=== PATIENT | male | born 1960 | race Caucasian/White ===

== ENCOUNTER 2018-09-15 06:43 | Outpatient (CLI) | payer BC ==
[~2018-09-15] VITALS: Ht 185.4 cm; Wt 113.4 kg
[2018-09-15] VITALS (8 sets, daily range): BP systolic 110–147; BP diastolic 64–95
[2018-09-15] MEDS ORDERED: LIDOCAINE 1% PF 2 ML VIAL. ONE ×2 (07:08→07:22)
[2018-09-15] MEDS ORDERED: IODIXANOL 320 MG/ML 100 ML VIAL. ONE ×2 (07:08→07:22)
[2018-09-15] MEDS ORDERED: LOSA100T7 PO (07:23)
[2018-09-15] MEDS ORDERED: TADA5TAB PO (07:23)
[2018-09-15] MEDS ORDERED: DICL75TA PO (07:23)
[2018-09-15] MEDS ORDERED: FLUO40CA2 PO (07:23)
[2018-09-15] MEDS ORDERED: HYDR-971 PO (07:23)
[2018-09-15] MEDS ORDERED: BYSTOLIC5 MG PO (07:23)
[2018-09-15] MEDS ORDERED: CRESTOR5 MG PO (07:23)
[2018-09-15] MEDS ORDERED: RANI150C PO (07:23)
[2018-09-15 07:51] LABS: RED BLOOD COUNT 4.68 x10^6/uL (4.30-5.70); WHITE BLOOD COUNT 6.1 x10^3/uL (4.0-11.0)
[2018-09-15 07:53] LABS: CALCIUM 9.3 mg/dL (8.5-10.1); CREATININE 1.2 mg/dL (0.7-1.3); GFR 62.4; POTASSIUM 4.4 mmol/L (3.5-5.1)
[2018-09-15] MEDS ORDERED: HEPARIN for IV BOLUS 10,000 UNIT/10 ML VIAL. ONE (08:02)
[2018-09-15] MEDS ORDERED: fentaNYL PF VIAL 100 MCG/2 ML VIAL ONE (08:02)
[2018-09-15] MEDS ORDERED: VERAPAMIL 5 MG/2 ML VIAL. ONE (08:02)
[2018-09-15] MEDS ORDERED: MIDAZOLAM HCL/PF 2 MG/2 ML VIAL. ONE ×2 (08:02→08:33)
[2018-09-15] MEDS ORDERED: NITROGLYCERIN 200 MCG/2 ML SYRINGE FOR CATH/VASC LAB. ONE (08:03)
[2018-09-15 08:08] LABS: PROTHROMBIN TIME PATIENT 11.9 SEC (11.7-14.0)
[2018-09-15] MEDS ORDERED: VERAPAMIL 5 MG/2 ML VIAL. IART ONE (08:45)
[2018-09-15] MEDS ORDERED: NITROGLYCERIN 200 MCG/2 ML SYRINGE FOR CATH/VASC LAB. IART ONE (08:45)
[2018-09-15] MEDS ORDERED: IODIXANOL 320 MG/ML 100 ML VIAL. IART ONE (08:45)
[2018-09-15] MEDS ORDERED: MIDAZOLAM HCL/PF 2 MG/2 ML VIAL. IV ONE (08:45)
[2018-09-15] MEDS ORDERED: fentaNYL PF VIAL 100 MCG/2 ML VIAL IV ONE (08:45)
[2018-09-15] MEDS ORDERED: HEPARIN for IV BOLUS 10,000 UNIT/10 ML VIAL. IART ONE (08:45)
[2018-09-15] MEDS ORDERED: IV NORMAL SALINE 500ML BAG 500 ML IV ONE (08:45)
[2018-09-15] MEDS ORDERED: LIDOCAINE 1% PF 2 ML VIAL. INJ ONE (08:45)
--- NOTE | 2018-09-15 11:42 | CARD ---
MR#: [id number] Date of Study: 09/15/2018 Ordering Physician: CHICHI RIOS, Referring Physician: CHICHI RIOS, Tech: RT Efrain (R) APPROVED REPORT Technologist: Shelley Cerda RT (R) Nurse: CHARLEE MARTIN Procedure(s) performed: 36 MINUTES [facility], Coronary angiography, Left ventriculography HISTORY The patient is a 58 year-old male with a history of : hypertension, dyslipidemia. INDICATION The indication(s) include : unstable angina . PROCEDURE NARRATIVE INFORMED CONSENT: After explaining the risks and benefits of the procedure and alternatives, informed consent was obtained. The patient was brought electively to the cardiac catheterization lab. A timeout was performed confi rming the patient's name, date of , procedure, and site of procedure. All necessary personnel w ere wearing the appropriate protective equipment and radiation monitor devices. (See nursing notes for medications administered). ACCESS: The right wrist was sterilely prepped and draped in the usual fashion. The right wrist was infiltrat ed with 1 mL of 2% lidocaine for subcutaneous anesthesia. A 6 Mozambican Terumo glide sheath was inserte d into the right radial artery without difficulty. CORONARY ANGIOGRAPHY: Right and left coronary angiography was performed using a 6Fr TIG 4.0 catheter. Left ventricular en d diastolic pressure was obtained with a pigtail catheter and pullback was performed after left ventr iculography. All catheter exchanges and advancements were performed over a guidewire. CLOSURE: At case completion the right radial sheath was removed and a Terumo radial band was applied with 13 m l of air. COMPLICATIONS: The patient tolerated the procedure well and there were no immediate complications. FINDINGS: HEMODYNAMICS: LVEDP 8 mm Hg No gradient on LV to aortic pullback. AO: 110/70 LEFT VENTRICULOGRAM: EF 55% Anterobasal: Normal. Anterolateral: Normal Apical: Normal Diaphragmatic: Normal Posterobasal: Normal CORONARY ANGIOGRAPHY: LM is a large caliber vessel with a distal 50% stenosis. LAD is proximally occluded. The mid to distal vessel appears to be small in caliber based on right to left collaterals. D1 is small caliber ostially occluded vessel with no significant disease Ramus is a moderate caliber vessel with an ostial/proximal 80% stenosis. LCx is a small caliber non-dominant vessel with mild luminal irregularities. OM1 is a very small caliber vessel with 50% mid stenosis. RCA is a large caliber hyperdominant vessel with a proximal 50-60% stenosis, distal 60-70% stenosis. RPDA is a moderate caliber vessel and is the main arterial supply to the apex. This vessel has no sig nificant disease. RPL is a moderate caliber vessel with normal angiographic appearance. Conclusion 1. Three vessel coronary artery disease with a diminutive LAD, likely not adequate vessel for bypass. Recommendations 1. Will discuss with CT surgery regarding CABG. If deemed not a candidate for CABG due to poor LAD ta rgets, then staged PCI of the RCA followed by [facility] recanalization of the LAD. Signed by : Chichi Rios, Electronically Approved : 09/15/2018 11:41:07
== END 2018-09-15 12:13 | disposition home or self-care (01) ==
LOC: CCL 06:43
PROVIDERS: ATTEND Internal Medicine Cardiovascular Disease
DX: I25.110 Atherosclerotic heart disease of native coronary artery with unstable angina pectoris (principal); I10 Essential (primary) hypertension; E78.5 Hyperlipidemia, unspecified
CPT/HCPCS: 36415; 80048; 85027; 85610; 93458; 99152; 99153; C1769; C1892; J1644; J2250; J3010; J3490; J7040; Q9967

== ENCOUNTER 2018-09-26 08:55 | Observation (INO) | payer BC ==
[2018-09-26] VITALS (13 sets, daily range): BP systolic 119–144; BP diastolic 60–89
[~2018-09-26] VITALS: Ht 177.8 cm; Wt 109.8 kg
[~2018-09-26 08:55] MED LIST: BYSTOLIC5 MG PO; CRESTOR5 MG PO; DICL75TA PO; FLUO40CA2 PO; HYDR-3164 PO; LOSA100T14 PO; RANI150C PO; TADA5TAB PO
[2018-09-26] MEDS ORDERED: IODIXANOL 320 MG/ML 100 ML VIAL. ONE (09:50)
[2018-09-26] MEDS ORDERED: LIDOCAINE 1% Multi-Dose 50 ML VIAL. ONE (09:50)
[2018-09-26 10:07] LABS: HEMATOCRIT 40.5 % (39.0-53.0); HEMOGLOBIN 14.1 g/dL (13.0-17.5); RED BLOOD COUNT 4.43 x10^6/uL (4.30-5.70); RED CELL DISTRIBUTION WIDTH 12.8 % (11.5-14.5); WHITE BLOOD COUNT 6.3 x10^3/uL (4.0-11.0)
[2018-09-26] MEDS ORDERED: NITROGLYCERIN 200 MCG/2 ML SYRINGE FOR CATH/VASC LAB. ONE ×3 (10:16→11:24)
[2018-09-26] MEDS ORDERED: fentaNYL PF VIAL 100 MCG/2 ML VIAL ONE ×2 (10:16→10:47)
[2018-09-26] MEDS ORDERED: VERAPAMIL 5 MG/2 ML VIAL. ONE (10:16)
[2018-09-26] MEDS ORDERED: MIDAZOLAM HCL/PF 2 MG/2 ML VIAL. ONE (10:16)
[2018-09-26] MEDS ORDERED: HEPARIN for IV BOLUS 10,000 UNIT/10 ML VIAL. ONE (10:16)
[2018-09-26 10:22] LABS: CALCIUM 9.2 mg/dL (8.5-10.1); CREATININE 1.2 mg/dL (0.7-1.3); GFR 62.4; POTASSIUM 4.8 mmol/L (3.5-5.1)
[2018-09-26 10:24] LABS: PROTHROMBIN TIME PATIENT 12.1 SEC (11.7-14.0)
[2018-09-26] MEDS ORDERED: LIDOCAINE 1% Multi-Dose 50 ML VIAL. INJ ONE (10:30)
[2018-09-26] MEDS ORDERED: HEPARIN for IV BOLUS 10,000 UNIT/10 ML VIAL. IART ONE (10:30)
[2018-09-26] MEDS ORDERED: NITROGLYCERIN 200 MCG/2 ML SYRINGE FOR CATH/VASC LAB. IART ONE (10:30)
[2018-09-26] MEDS ORDERED: fentaNYL PF VIAL 100 MCG/2 ML VIAL IV ONE (10:30)
[2018-09-26] MEDS ORDERED: IODIXANOL 320 MG/ML 100 ML VIAL. IART ONE (10:30)
[2018-09-26] MEDS ORDERED: VERAPAMIL 5 MG/2 ML VIAL. IART ONE (10:30)
[2018-09-26] MEDS ORDERED: MIDAZOLAM HCL/PF 2 MG/2 ML VIAL. IV ONE (10:30)
[2018-09-26] MEDS ORDERED: BIVALIRUDIN 250 MG VIAL. IV ONE ×4 (10:36→11:28)
[2018-09-26] MEDS ORDERED: MIDAZOLAM HCL/PF 5 MG/5 ML VIAL. ONE (10:47)
[2018-09-26] MEDS ORDERED: ASPIRIN CHEWABLE 81 MG TABLET. PO ONE (11:15)
[2018-09-26] MEDS ORDERED: MIDAZOLAM HCL/PF 5 MG/5 ML VIAL. IV ONE (11:15)
[2018-09-26] MEDS ORDERED: PRASUGREL 10 MG TABLET. PO ONE (11:15)
[2018-09-26] MEDS ORDERED: ACETAMINOPHEN 325 MG TABLET. PO PRN (14:30)
[2018-09-26] MEDS ORDERED: 0.9 % SODIUM CHLORIDE 10 ML DISP.SYRIN. IV PRN (14:30)
[2018-09-26] MEDS ORDERED: NITROGLYCERIN SUBLINGUAL 0.4 MG BOTTLE OF 25. SL PRN (14:30)
--- NOTE | 2018-09-26 15:18 | CARD ---
MR#: [id number] Date of Study: 09/26/2018 Ordering Physician: CHICHI ELIZABETH, Referring Physician: CHICHI ELIZABETH, Tech: RT Kvng (R) APPROVED REPORT Technologist: RT Kvng (R) Nurse: Joanie Singh R.N. Procedure(s) performed: Sedation Time: 70 minutes PCI of the RCA IVUS of the RCA iFR of the RCA HISTORY The patient is a 58 year-old male with a history of : coronary artery disease. INDICATION The indication(s) include : unstable angina . CASE TECHNIQUE During this case, Fluoroscopy and low osmolar contrast were used for imaging. PROCEDURE NARRATIVE CLINICAL INFORMATION: 58 y.o male presenting for staged PCI of the RCA after heart team discussion regarding PCI versus CAB G. He has had accelerating angina. INFORMED CONSENT: After explaining the risks and benefits of the procedure and alternatives, informed consent was obtained. The patient was brought electively to the cardiac catheterization lab. A timeout was performed confi rming the patient's name, date of , procedure, and site of procedure. All necessary personnel w ere wearing the appropriate protective equipment and radiation monitor devices. (See nursing notes for medications administered). ACCESS: The right wrist was sterilely prepped and draped in the usual fashion. The right wrist was infiltrat ed with 1 mL of 2% lidocaine for subcutaneous anesthesia. A 6 Swedish Terumo glide sheath was inserte d into the right radial artery without difficulty. INTERVENTIONAL TECHNIQUE: Bivalirudin was used for anticoagulation. Through a 6 Swedish JR4 guide catheter a 0.014 inch Verrata pressure wire was advanced to the distal RCA after appropriate normalization. The proximal RCA lesion was not significant. The distal RCA lesion was noted to have an IFR value of 0.88. Subsequently, bal loon angioplasty was performed with a 3.5 x 15 mm balloon and the lesion was stented with a 4.0 x 23 mm Alpine drug-eluting stent. The stent was then postdilated with a 4.0 x 15 mm noncompliant balloon at 18 sarah. Subsequently, stent expansion was evaluated with a intravascular ultrasound and this revea led a well opposed and expanded stent. Repeat IFR measurement was within normal limits at 0.95. Multi ple doses of nitroglycerin was administered. Final post-PCI injected demonstrated excellent stent exp ansion with BILLY-3 flow in the vessel and no evidence of guider wire-related complications. CLOSURE: At case completion the right radial sheath was removed and a Terumo radial band was applied with 13 m l of air. COMPLICATIONS: The patient tolerated the procedure well and there were no immediate complications. Conclusion 1. Successful PCI of the distal RCA with implantation of a 4.0 x 23 mm Alpine drug-eluting stent 2. Positive IFR of the distal RCA lesion 3. Intravascular ultrasound revealed excellent stent expansion. Recommendations 1. Aspirin 81 mg daily with addition of Effient 10 g daily. Patient was given a 60 mg load in the Cat h Lab 2. Plan for staged most likely retrograde PCI of the small caliber LAD and stenting of the LM/Ramus. Signed by : Chichi Elizabeth, Electronically Approved : 09/26/2018 15:17:17
[2018-09-26] MEDS ORDERED: NON FORMULARY ITEM (Tadalafil (Cialis) 5 MG) PO PRN (19:00)
[2018-09-26] MEDS: FAMOTIDINE 20 MG TABLET. PO SCH (20:29)
[2018-09-26] MEDS: METOPROLOL TART IMMED RELEASE 25 MG TABLET. PO SCH (20:29)
[2018-09-26] MEDS ORDERED: ATORVASTATIN CALCIUM 20 MG TABLET PO SCH (21:00)
[2018-09-27 03:00] VITALS: BP 118/79
[2018-09-27 07:57] VITALS: BP 126/80
[2018-09-27] MEDS ORDERED: HYDROcodone/APAP 5/325MG 1 TAB TABLET PO SCH (09:00)
[2018-09-27] MEDS ORDERED: DICLOFENAC SODIUM 25 MG TABLET.DR PO SCH (09:00)
[2018-09-27] MEDS ORDERED: LOSARTAN POTASSIUM 50 MG TABLET. PO SCH (09:00)
[2018-09-27] MEDS ORDERED: FLUoxetine HCL 20 MG CAPSULE PO SCH (09:00)
[2018-09-27] MEDS: METOPROLOL TART IMMED RELEASE 25 MG TABLET. PO SCH (09:33)
[2018-09-27] MEDS: FAMOTIDINE 20 MG TABLET. PO SCH (09:33)
--- NOTE | 2018-09-27 10:23 | PDOC3 ---
JADE LAI SCHEDULING REPRESENTATIVE 09/27/18 1023: Discharge Summary Visit Information Date of Admission: Sep 26, 2018 Date of Discharge: Sep 27, 2018 Admitting Diagnosis: CAD, unstable angina Final Diagnosis CAD: S/P PCI/KADEN to RCA Brief Hospital Course Allergies Allergies Coded Allergies Type Severity Reaction Last Updated Verified No Known Drug Allergies 09/15/18 No Vital Signs Vital Signs Date Time Temp Pulse Resp B/P (MAP) Pulse Ox O2 Delivery O2 Flow Rate FiO2 09/27/18 09:34 69 126/80 09/27/18 07:57 98.6 18 98 Room Air 98.6 09/26/18 11:48 2.0 Lab Results Laboratory Tests Test 09/26/18 10:00 White Blood Count 6.3 x10^3/uL (4.0-11.0) Red Blood Count 4.43 x10^6/uL (4.30-5.70) Hemoglobin 14.1 g/dL (13.0-17.5) Hematocrit 40.5 % (39.0-53.0) Mean Corpuscular Volume 91 fL (79-100) Mean Corpuscular Hemoglobin 32 pg (25-35) Mean Corpuscular Hemoglobin Concent 35 g/dL (31-37) Red Cell Distribution Width 12.8 % (11.5-14.5) Platelet Count 209 x10^3/uL (140-400) Prothrombin Time 12.1 SEC (11.7-14.0) Prothromb Time International Ratio 0.9 (0.8-1.1) Sodium Level 141 mmol/L (136-145) Potassium Level 4.8 mmol/L (3.5-5.1) Chloride Level 106 mmol/L (98-107) Carbon Dioxide Level 23 mmol/L (21-32) Anion Gap 12 (6-14) Blood Urea Nitrogen 19 mg/dL (8-26) Creatinine 1.2 mg/dL (0.7-1.3) Estimated GFR (Cockcroft-Gault) 62.4 Glucose Level 114 mg/dL (70-99) Calcium Level 9.2 mg/dL (8.5-10.1) Brief Hospital Course Mr. Bertrand is a 58 old male admitted for planned [facility] due to symptoms of unstable angina. Successful PCI/KADEN to distal RCA. Plan for staged most likely retrograde PCI of the small caliber LAD and stenting of the LM/Ramus. VSS. Tolerated procedure well, no complains of chest pain or exertional CP, LOPEZ postprocedure. Right wrist arteriotomy site intact with no erythema, swelling and neurovascular status to right hand is intact. No arrhythmias and maintain SR. Med changes include addition of effient 10 mg daily and increasing crestor to 20 mg daily. Rx given and to take ECASA 81 mg po daily. Continue home nevibolol and losartan and encouraged cardiac rehab once staged procedure is complete. Discharge Information Condition at Discharge: Stable Follow Up: Weeks (2) Disposition/Orders: D/C to Home Scheduled Aspirin (Aspir-Low) 81 Mg Tablet.dr, 1 TAB PO DAILY for heart, #30 Ref 3 ( Reported) Entered as Reported by: Lennox Mera on 09/27/181049 Diclofenac Sodium (Diclofenac Sodium) 75 Mg Tablet.dr, 1 TAB PO DAILY for pain, #60 Ref 1 (Reported) Entered as Reported by: MIC MESSINA on 09/15/18722 Last Action: Converted on 09/26/181849 by YULISA RENEE Fluoxetine Hcl (Fluoxetine Hcl) 40 Mg Capsule, 1 CAP PO DAILY for depression, # 30 Ref 2 (Reported) Entered as Reported by: MIC MESSINA on 09/15/18722 Last Action: Converted on 09/26/181849 by YULISA RENEE Hydrocodone/Apap 5-325 ([place] 5-325 Tablet) 1 Each Tablet, 1 TAB PO DAILY for pain, #90 (Reported) Entered as Reported by: MIC MESSINA on 09/15/18722 Last Action: Continued on 09/26/181849 by YULISA RENEE Losartan Potassium (Losartan Potassium) 100 Mg Tablet, 100 MG PO DAILY for htn, (Reported) Entered as Reported by: MIC MESSINA on 09/15/18722 Last Action: Converted on 09/26/181849 by YULISA RENEE Nebivolol Hcl (Bystolic) 5 Mg Tablet, 5 MG PO DAILY for htn, (Reported) Entered as Reported by: MIC MESSINA on 09/15/18722 Last Action: Converted on 09/26/181849 by YULISA RENEE Prasugrel Hcl (Effient) 10 Mg Tablet, 10 MG PO DAILYWBKFT for CAD for 30 Days, # 30 Ref 3 Prescribed by: JADE LAI on 09/27/18 1028 Ranitidine Hcl (Ranitidine Hcl) 150 Mg Capsule, 1 CAP PO BID for gerd, #60 Ref 5 (Reported) Entered as Reported by: MIC MESSINA on 09/15/18722 Last Action: Converted on 09/26/181849 by YULISA RENEE Rosuvastatin Calcium (Crestor) 5 Mg Tablet, 20 MG PO HS for FOR CHOLESTEROL, # 30 Ref 0 (Reported) Entered as Reported by: MIC MESSINA on 09/15/18722 Last Action: Converted on 09/26/181849 by YULISA RENEE Scheduled PRN Tadalafil (Cialis) 5 Mg Tablet, 5 MG PO ONCE PRN for SEE COMMENTS, (Reported) used for bph Entered as Reported by: MIC MESSINA on 09/15/18722 Last Action: Converted on 09/26/181849 by YULISA RENEE Patient Instructions Patient Instructions GENERAL INSTRUCTIONS: 1. Your dressing should be removed prior to leaving the hospital. 2. It is OK to shower the day after your procedure. 3. If you received stents, be sure to carry your stent information card with you in your wallet/purse at all times. 4. Call the office immediately at [phone] if you notice any fever or if there is redness, worsening tenderness/pain, increased bruising, or drainage from the puncture site. 5. Should you have bleeding from the site, lie down immediately & put pressure on the site. The pressure should be hard enough to stop the bleeding. Have the nearest person call 911. DO NOT try to drive to the ER with active bleeding. 6. If you notice a change in color, coolness to touch, or loss of feeling in the affected extremity, come to the emergency room. Please have someone drive you or call 911 if no one is available. DO NOT drive yourself. 7. If you normally take glucophage (metformin), please do not take this medicine for 48 hours following your procedure. 8. DO NOT STOP TAKING YOUR PLAVIX OR ASPIRIN UNLESS IT IS CLEARED BY A RESERVOIR ENGINEERING MANAGER OF YOUR DRY CELL TESTER AT OUR OFFICE. 9. QUIT SMOKING: the [place] [employer], [employer], & [employer] have cessation resources available on their websites 10. Please have someone available to drive you home from the hospital as you may be limited by sedation medications given during the procedure. Radial Artery (Wrist) access: 1. No pushing, pulling, lifting, typing, or anything that requires repetitive use/movement of the affected wrist for 3 days following your procedure. 2. OK to drive the day following your procedure. (This is because of effects of sedating medications.) Call the office at [phone] for any questions or concerns. CHICHI RIOS MD 09/27/18 1517: Discharge Summary Brief Hospital Course Brief Hospital Course Pt. seen and examined. Agree with above GEARMAN note. No acute issues overnight. Doing well this morning. f/u with discussion regarding chest pain and outpt evaluation for [facility] CONTROL INTEGRATOR recanalization after MPI JADE LAI APRN Sep 27, 2018 10:23 CHICHI RIOS MD Sep 27, 2018 15:17
[2018-09-27] MEDS ORDERED: PRAS10TA9 PO (10:28)
[2018-09-27] MEDS ORDERED: ASPIRIN ENTERIC COATED 81 MG TABLET.DR. PO SCH (10:30)
[2018-09-27] MEDS ORDERED: PRASUGREL 10 MG TABLET. PO SCH (10:30)
[2018-09-27] MEDS ORDERED: ASPI81TA50 PO (10:50)
[2018-09-27 11:14] VITALS: BP 118/79
[2018-09-27] MEDS ORDERED: ATORVASTATIN CALCIUM 40 MG TABLET. PO SCH (21:00)
== END 2018-09-27 11:23 | disposition home or self-care (01) ==
LOC: CCL 08:55 → 2 SOUTH 09:00
PROVIDERS: ADMIT Internal Medicine Cardiovascular Disease; ATTEND Internal Medicine Cardiovascular Disease
DX: I25.110 Atherosclerotic heart disease of native coronary artery with unstable angina pectoris (principal); I10 Essential (primary) hypertension; E78.5 Hyperlipidemia, unspecified
CPT/HCPCS: 36415; 80048; 85027; 85610; 93571; 96374; 96375; C1713; C1725; C1753; C1769; C1887; C1892; C9600; G0378; G0379; J0583; J1644; J2250; J3010; J3490; 37252; 92928; 99152; 99153

== ENCOUNTER → 2018-11-14 | Outpatient (CLI) | payer BC ==
[~2018-11-14] MED LIST changes: +ASPI81TA50 PO; +PRAS10TA9 PO; +REGADENOSON 0.4 MG/5 ML DISP.SYRIN. IV ONE
--- NOTE | 2018-11-14 11:32 | RAD ---
MR#: [id number] Date of Study: 11/14/2018 Ordering Physician: CHICHI ELIZABETH, Referring Physician: TOMMY MCKINNEY Tech: MOO Mendieta ARRT (R) (N) APPROVED REPORT Test Type: Pharmacological Stress Nurse/Tech: Erum Lerma R.N. / Chelsi Wayne RN Test Indications: CAD Cardiac History: Hypertension, High cholesterol, Family history, Former Smoker Medications: See Electronic Medical Record Medical History: See Electronic Medical Record Resting ECG: NSR Resting Heart Rate: 62 bpm Resting Blood Pressure: 129/75mmHg Pretest Chest Pain: No chest pain Nurse/Tech Notes S1S2, Lungs CTA. Patient scheduled for Treadmill, patient stated he was not able to complete due to s marciano stenosis and pain; changed to chemical. Consent: The procedure was explained to the patient in lay terms. Informed consent was witnessed. Maury eout was entered into [email or web address]. History and Stress Test performed by Erum Lerma R.N. / Chelsi ruvalcaba RN Pharm. Details Pharmacologic stress testing was performed using 0.4mg per 5ml of regadenoson given intravenously ove r 7-10 seconds. Stress Symptoms Dyspnea POST EXERCISE Reason for Termination: Infusion complete Target HR: 138 Max HR: 92 bpm Max Blood Pressure: 136/90mmHg Blood Pressure response to exercise: Normal blood pressure response during stress. Chest Pain: No. Arrhythmia: No. ST Change: No. INTERPRETATION Stress EKG Conclusion: No acute EKG changes. Imaging Protocol IMAGE PROTOCOL: Rest Tc-99m/stress Tc-99m 1 day Rest: Stress: Viability: Radiopharm.Tc99m ZncccrestHa71e Sestamibi Dose10.5mCi 32mCi Img Date 11/14/2018 11/14/2018 Inj-Img Vsbx40cpq. 60min. Rest Admin Site:IV - Right AntecubitalAdministrator:MOO Mendieta ARRT (R)(N) Stress Admin Site: IV - Right AntecubitalAdministrator: Selvin Ricci, RT (R)(N) STRESS DATA End Diast. Vol.110.0mlLVEDV index BSA47.0ml End Syst. Vol.49.0mlLVESV index BSA21.0ml Myocardial Rdug192.0gEject. Nhusldit22.0% Stress Scores Regional WT1.00Summed WT5.00 Regional WM0.00Summed WM1.00 The rest and stress images show normal perfusion, normal contraction and thickening. LV Perf. Quant 17 Seg. SSS0.00 17 Seg. SRS0.00 17 Seg. SDS0.00 Stress Defect Extent (% LAD)0.00Rest Defect Extent (% LAD)0.00Rev. Defect Extent (% LAD)0.00 Stress Defect Extent (% LCX) 0.00Rest Defect Extent (% LCX)0.00Rev. Defect Extent (% LCX)0.00 Stress Defect Extent (% RCA)0.00Rest Defect Extent (% RCA)0.00Rev. Defect Extent (% RCA)0.00 Stress Defect Extent (% RAYMOND)0.00Rest Defect Extent (% RAYMOND)0.00Rev. Defect Extent (% RAYMOND)0.00 Other Information Quality:Good Risk Assessment: Low Risk Conclusion 1. No evidence of EKG changes with stress testing. 2. Normal perfusion at stress/rest. 3. Low risk study. 4. EF > 60%. Signed by : Chichi Elizabeth, Electronically Approved : 11/14/2018 11:31:21
== END | disposition home or self-care (01) ==
LOC: NM 08:17
PROVIDERS: ATTEND Internal Medicine Cardiovascular Disease
DX: I25.82 Chronic total occlusion of coronary artery (principal); E78.5 Hyperlipidemia, unspecified; I12.9 Hypertensive chronic kidney disease with stage 1 through stage 4 chronic kidney disease, or unspecified chronic kidney disease; N18.2 Chronic kidney disease, stage 2 (mild); Z87.891 Personal history of nicotine dependence; Z82.49 Family history of ischemic heart disease and other diseases of the circulatory system
CPT/HCPCS: 78452; 93017; 96374; A9500; J2785

== ENCOUNTER → 2019-08-04 | Outpatient (CLI) | payer BC ==
[~2019-08-04] MED LIST changes: +EZET10TA20 PO; -REGADENOSON 0.4 MG/5 ML DISP.SYRIN. IV ONE
--- NOTE | 2019-08-08 09:20 | CARD ---
MR#: [id number] Date of Study: 08/04/2019 Ordering Physician: CHICHI ELIZABETH, Referring Physician: CHICHI ELIZABETH, Tech: Jesica Valera CS APPROVED REPORT INDICATION Chest Pain Reason : Patient complained of pain PROCEDURE The patient underwent an Exercise Stress Test using the Jg Protocol. Blood pressure, heart rate, a nd EKG were monitored. An Echocardiogram was performed by voip network technician in four stages in quad fashion. At peak stress four se lected images were obtained and placed side by side with resting images for comparison. STRESS ECHO FINDINGS The resting Echocardiogram showed normal left ventricular systolic contractility with an estimated Ej ection Fraction of about 60 %. The Stress Echocardiogram showed normal augmentation of myocardial wall segments using a 16 segment m sukhi. The Stress Echocardiogram left ventricular systolic contractility has an estimated Ejection Fraction of about 75%. Test Type: Exercise Stress Nurse/Tech: Hawa Call R.N. Test Indications: C/P, LOPEZ Cardiac History and Allergies: stent,CAD, obesity Medications: SEE EHR Medical History: SEE EHR Resting ECG: SR Resting Heart Rate: 70 bpm Resting Blood Pressure: 146/77mmHg Pretest Chest Pain: No chest pain Nurse/Tech Notes S1S2, lungs CTA Stress Symptoms moderate to severe SOB, chest pain. Notified Dr. Elizabeth of test results before allowing pt to leav e after test. Dr. Elizabeth talked with pt regarding abnormal results. POST EXERCISE Reason for Termination: Patient request Target HR: No Max HR: 129 bpm 80% of Maximum Predicted HR: 162 bpm Exercise duration: 6:56 min:sec, 3 Stage Exercise capacity: 10.1METs Max Blood Pressure: 156/84mmHg Blood Pressure response to exercise: Normal blood pressure response during stress. Heart Rate response to exercise: wnl Chest Pain: Yes. started about 2 minutes in -scale 2/10 went upto 5/10 when he stopped , then down to 2 by the end of recovery period Arrhythmia: Yes. occ pac and pvc ST Change: Yes. St elevation in leads AVR, AVL. ST depression in leads II,III, AVF, V3-V6 INTERPRETATION Stress EKG Conclusion: Baseline EKG showed sinus rhythm. ST depression and T wave inversions inferola teral leads consistent with ischemia. No arrhythmias. Preliminary Notification Critical Value: No <Conclusion> Treadmill exercise stress echocardiogram showed EKG changes of ischemia but without any wall motion a bnormalities on ultrasound images. However, patient achieved submaximal stress of 80% predicted maximum heart rate. Normal left ventricle systolic function with ejection fraction estimated at 60%. Consider cardiac catheterization if there is significant clinical suspicion. Signed by : Dane Haque, Electronically Approved : 08/07/2019 08:34:33
== END | disposition home or self-care (01) ==
LOC: ECHO 12:48
PROVIDERS: ATTEND Internal Medicine Cardiovascular Disease
DX: I25.10 Atherosclerotic heart disease of native coronary artery without angina pectoris (principal); I49.3 Ventricular premature depolarization; E66.9 Obesity, unspecified
CPT/HCPCS: 93017; 93350

== ENCOUNTER 2019-08-10 07:02 | Outpatient (CLI) | payer BC ==
[2019-08-10] VITALS (9 sets, daily range): BP systolic 97–145; BP diastolic 62–91
[~2019-08-10] VITALS: Ht 185.4 cm; Wt 113.4 kg
[~2019-08-10 07:02] MED LIST changes: -EZET10TA20 PO
[2019-08-10 07:39] LABS: HEMATOCRIT 43.6 % (39.0-53.0); HEMOGLOBIN 15.1 g/dL (13.0-17.5); RED BLOOD COUNT 4.86 x10^6/uL (4.30-5.70); RED CELL DISTRIBUTION WIDTH 13.7 % (11.5-14.5); WHITE BLOOD COUNT 6.6 x10^3/uL (4.0-11.0)
[2019-08-10 07:47] LABS: CREATININE 1.3 mg/dL (0.7-1.3); GFR 56.7; POTASSIUM 4.2 mmol/L (3.5-5.1); PROTHROMBIN TIME PATIENT 12.1 SEC (11.7-14.0)
[2019-08-10] MEDS ORDERED: EZET10TA20 PO (08:04)
[2019-08-10] MEDS ORDERED: fentaNYL PF VIAL 100 MCG/2 ML VIAL ONE ×2 (08:23→08:41)
[2019-08-10] MEDS ORDERED: HEPARIN for IV BOLUS 10,000 UNIT/10 ML VIAL. ONE (08:23)
[2019-08-10] MEDS ORDERED: MIDAZOLAM HCL/PF 2 MG/2 ML VIAL. ONE ×2 (08:23→08:35)
[2019-08-10] MEDS ORDERED: VERAPAMIL 5 MG/2 ML VIAL. ONE (08:23)
[2019-08-10] MEDS ORDERED: NITROGLYCERIN 200 MCG/2 ML SYRINGE FOR CATH/VASC LAB. ONE (08:24)
[2019-08-10] MEDS ORDERED: LIDOCAINE 1% PF 2 ML VIAL. ONE (08:31)
[2019-08-10] MEDS ORDERED: fentaNYL PF VIAL 100 MCG/2 ML VIAL IV ONE (09:00)
[2019-08-10] MEDS ORDERED: HEPARIN for IV BOLUS 10,000 UNIT/10 ML VIAL. IART ONE (09:00)
[2019-08-10] MEDS ORDERED: NITROGLYCERIN 200 MCG/2 ML SYRINGE FOR CATH/VASC LAB. IART ONE (09:00)
[2019-08-10] MEDS ORDERED: IODIXANOL 320 MG/ML 100 ML VIAL. IART ONE (09:00)
[2019-08-10] MEDS ORDERED: VERAPAMIL 5 MG/2 ML VIAL. IART ONE (09:00)
[2019-08-10] MEDS ORDERED: MIDAZOLAM HCL/PF 2 MG/2 ML VIAL. IV ONE (09:00)
[2019-08-10] MEDS ORDERED: LIDOCAINE 1% Multi-Dose 20 ML VIAL. INJ ONE (09:00)
--- NOTE | 2019-08-10 09:25 | CARD ---
MR#: [id number] Date of Study: 08/10/2019 Ordering Physician: CHICHI RIOS, Referring Physician: CHICHI RIOS, Tech: RT Valentin (R) SANJUANITA APPROVED REPORT Technologist: RT Valentin (R) SANJUANITA Nurse: gil ortega rn Procedure(s) performed: fluoro time: 5.4 min dose: [id number] Contrast: 84cc Moderate sedation: 25 min LHC, Coronary angiography, Left ventriculogram HISTORY : The patient is a 59 year-old male with a history of . INDICATION The indication(s) include : positive stress test, unstable angina . CSHA Clinical Frailty Scale CS Clinical Frailty Scale: Managing Well Heart Failure Heart Failure: No If Yes, Newly Diagnosed: No PROCEDURE NARRATIVE INFORMED CONSENT: After explaining the risks and benefits of the procedure and alternatives, informed consent was obtained. The patient was brought electively to the cardiac catheterization lab. A timeout was performed confi rming the patient's name, date of , procedure, and site of procedure. All necessary personnel w ere wearing the appropriate protective equipment and radiation monitor devices. (See nursing notes for medications administered). INDICATIONS: Worsening exertional dyspnea and angina, positive treadmill stress echocardiogram. ACCESS: The right wrist was sterilely prepped and draped in the usual fashion. The right wrist was infiltrat ed with 1 mL of 2% lidocaine for subcutaneous anesthesia. A 6 Latvian Terumo glide sheath was inserte d into the right radial artery without difficulty. CORONARY ANGIOGRAPHY: Right and left coronary angiography was performed using a 6Fr TIG 4.0 catheter. Left ventricular en d diastolic pressure was obtained with a pigtail catheter and pullback was performed after left ventr iculography. All catheter exchanges and advancements were performed over a guidewire. CLOSURE: At case completion the right radial sheath was removed and a Terumo radial band was applied with 13 m l of air. COMPLICATIONS: The patient tolerated the procedure well and there were no immediate complications. FINDINGS: HEMODYNAMICS: LVEDP 10 mm Hg No gradient on LV to aortic pullback. AO: 128/78 LEFT VENTRICULOGRAM: EF 55% Anterobasal: Normal. Anterolateral: Normal Apical: Normal Diaphragmatic: Normal Posterobasal: Normal CORONARY ANGIOGRAPHY: LM is a large caliber vessel with a distal 50% stenossi. LAD is negatively remodeled and small in caliber with a very proximal 100% occlusion. The distal vess el is seen to fill via robust right to left collaterals. Ramus is a moderate caliber vessel with an ostial 80% stenosis. D1 is a small caliber vessel with mild diffuse irregularities and has an ostial 100% occlusion. This vessel is also seen to fill via right to left collaterals. LCx is a moderate caliber non-dominant vessel with normal angiographic appearance. OM1 is a small caliber vessel with normal angiographic appearance. RCA is a large caliber hyper dominant vessel with a proximal 40-50% stenosis, followed by a mid 40-50 % stenosis. Previous iFR of this vessel was within normal limits after prior distal RCA PCI. RPDA is a moderate caliber vesel with a proximal 50% stenosis. RPL is a moderate caliber vessel with distal diffuse disease. Conclusion 1. Normal left sided filling pressures. LVEDP 10 mm Hg 2. Normal LV systolic function. EF 55% 3. Severe three vessel coronary disease with patent previously placed distal RCA stent Recommendations 1. Refer to Dr. Lewis at [facility] for complex CONVENTIONS ASSISTANT PCI of the LAD/Diag/Ramus for unstable angina d espite adequate control of BP/HR with aggressive meds/anti-anginals. Signed by : Chichi Rios, Electronically Approved : 08/10/2019 09:25:12
--- NOTE | 2019-08-10 11:39 | NUR ---
Discharge Note: ABBY HURT Discharge instructions and discharge home medications reviewed with Patient and a copy given. All questions have been answered and understanding verbalized. The following instructions and handouts were given: Radial site care and follow up appointment with Dr. Elizabeth in 2 weeks. Discontinued lines and drains: Left hand IV discontinued. Patient discharged home with spouse.
--- NOTE | 2019-08-10 18:00 | PDOC1 ---
History and Physical Visit Information Date of Admission: 08/10/2019 History of Present Illness History of Present Illness Late entry 59-year-old man with past medical history as noted below coming into the hospital today for a planned left heart catheterization. He was seen in the office approximately 2 months ago and was reporting worsening exertional dyspnea and chest pain. He underwent a stress echocardiogram which revealed significant lateral hypokinesis and EKG changes. In this setting a discussion was held regarding the risks and benefits of repeat cardiac catheterization and he has agreed to proceed. Cardiac Risk Factors Comments Hypertension Dyslipidemia Chronic kidney disease Diabetes Prior coronary artery disease status post PCI to the RCA with known chronic total occlusion of the LAD Current Medications Current Medications Current Medications Fentanyl Citrate (Fentanyl 2ml Vial) 100 mcg 1X ONCE IV Last administered on 08/10/19at 08:58; Start 08/10/19 at 09:00; Stop 08/10/19 at 09:01; Status DC Fentanyl Citrate (Fentanyl 2ml Vial) 100 mcg STK-MED ONCE .ROUTE ; Start 08/10/19 at 08:23; Stop 08/10/19 at 08:23; Status DC Fentanyl Citrate (Fentanyl 2ml Vial) 100 mcg STK-MED ONCE .ROUTE ; Start 08/10/19 at 08:41; Stop 08/10/19 at 08:42; Status DC Heparin Sodium (Porcine) (Heparin Sodium) 2,500 unit 1X ONCE IART Last administered on 08/10/19at 08:59; Start 08/10/19 at 09:00; Stop 08/10/19 at 09:01; Status DC Heparin Sodium (Porcine) (Heparin Sodium) 10,000 unit STK-MED ONCE .ROUTE ; Start 08/10/19 at 08:23; Stop 08/10/19 at 08:23; Status DC Heparin Sodium/ Sodium Chloride 1,000 ml @ As Directed STK-MED ONCE .ROUTE ; Start 08/10/19 at 08:31; Stop 08/10/19 at 08:31; Status DC Heparin Sodium/ Sodium Chloride (HEPARIN for ARTERIAL LINE FLUSH) 1,000 unit 1X ONCE IART Last administered on 08/10/19at 08:57; Start 08/10/19 at 09:00; Stop 08/10/19 at 09:01; Status DC Iodixanol (Visipaque 320) 100 ml 1X ONCE IART Last administered on 08/10/19at 09:00; Start 08/10/19 at 09:00; Stop 08/10/19 at 09:01; Status DC Lidocaine HCl (Lidocaine 1% 20ml Vial) 20 ml 1X ONCE INJ Last administered on 08/10/19at 09:00; Start 08/10/19 at 09:00; Stop 08/10/19 at 09:01; Status DC Lidocaine HCl (Xylocaine-Mpf 1% 2ml Vial) 2 ml STK-MED ONCE .ROUTE ; Start at 08:31; Stop 08/10/19 at 08:31; Status DC Midazolam HCl (Versed) 2 mg 1X ONCE IV Last administered on 08/10/19at 09:00; Start 08/10/19 at 09:00; Stop 08/10/19 at 09:01; Status DC Midazolam HCl (Versed) 2 mg STK-MED ONCE .ROUTE ; Start 08/10/19 at 08:23; Stop 08/10/19 at 08:23; Status DC Midazolam HCl (Versed) 2 mg STK-MED ONCE .ROUTE ; Start 08/10/19 at 08:35; Stop 08/10/19 at 08:36; Status DC Nitroglycerin (Nitroglycerin) 200 mcg 1X ONCE IART Last administered on 08/10/19at 08:57; Start 08/10/19 at 09:00; Stop 08/10/19 at 09:01; Status DC Nitroglycerin (Nitroglycerin) 200 mcg STK-MED ONCE .ROUTE ; Start 08/10/19 at 0 8:24; Stop 08/10/19 at 08:24; Status DC Verapamil HCl (Verapamil) 2.5 mg 1X ONCE IART Last administered on 08/10/19at 08:57; Start 08/10/19 at 09:00; Stop 08/10/19 at 09:01; Status DC Verapamil HCl (Verapamil) 5 mg STK-MED ONCE .ROUTE ; Start 08/10/19 at 08:23; Stop 08/10/19 at 08:24; Status DC Allergies Allergies Allergies Coded Allergies Type Severity Reaction Last Updated Verified No Known Drug Allergies 09/15/18 No Social History Comments No current alcohol, tobacco or illicit drug use. ROS Review of System Negative for 10 out of 14 systems reviewed unless otherwise mentioned above in history of present illness Physical Exam Comments The patient appeared well nourished and normally developed. Head exam is unremarkable. No scleral icterus or corneal arcus noted. Neck is without jugular venous distension, thyromegaly, or carotid bruits. Carotid upstrokes are brisk bilaterally. Lungs are clear to auscultation and percussion. Cardiac exam reveals the PMI to be normally sized and situated. Rhythm is regular. First and second heart sounds normal. No murmurs, rubs or gallops. Abdominal exam reveals normal bowel sounds, no masses, no organomegaly and no aortic enlargement. Extremities are nonedematous and both femoral and pedal pulses are normal. Msk: No traumua Neuro: No focal deficits Vitals VITALS Vital Signs Date Time Temp Pulse Resp B/P (MAP) Pulse Ox O2 Delivery O2 Flow Rate FiO2 08/10/19 11:04 61 13 95 Room Air 08/10/19 08:58 2.0 08/10/19 08:57 98/63 08/10/19 07:10 98.0 98.0 Labs Labs Laboratory Tests Test 08/10/19 07:21 White Blood Count 6.6 x10^3/uL (4.0-11.0) Red Blood Count 4.86 x10^6/uL (4.30-5.70) Hemoglobin 15.1 g/dL (13.0-17.5) Hematocrit 43.6 % (39.0-53.0) Mean Corpuscular Volume 90 fL (79-100) Mean Corpuscular Hemoglobin 31 pg (25-35) Mean Corpuscular Hemoglobin Concent 35 g/dL (31-37) Red Cell Distribution Width 13.7 % (11.5-14.5) Platelet Count 220 x10^3/uL (140-400) Prothrombin Time 12.1 SEC (11.7-14.0) Prothromb Time International Ratio 0.9 (0.8-1.1) Sodium Level 139 mmol/L (136-145) Potassium Level 4.2 mmol/L (3.5-5.1) Chloride Level 104 mmol/L (98-107) Carbon Dioxide Level 28 mmol/L (21-32) Anion Gap 7 (6-14) Blood Urea Nitrogen 16 mg/dL (8-26) Creatinine 1.3 mg/dL (0.7-1.3) Estimated GFR (Cockcroft-Gault) 56.7 Glucose Level 115 mg/dL (70-99) Calcium Level 9.0 mg/dL (8.5-10.1) Laboratory Tests Test 08/10/19 07:21 White Blood Count 6.6 x10^3/uL (4.0-11.0) Red Blood Count 4.86 x10^6/uL (4.30-5.70) Hemoglobin 15.1 g/dL (13.0-17.5) Hematocrit 43.6 % (39.0-53.0) Mean Corpuscular Volume 90 fL (79-100) Mean Corpuscular Hemoglobin 31 pg (25-35) Mean Corpuscular Hemoglobin Concent 35 g/dL (31-37) Red Cell Distribution Width 13.7 % (11.5-14.5) Platelet Count 220 x10^3/uL (140-400) Prothrombin Time 12.1 SEC (11.7-14.0) Prothromb Time International Ratio 0.9 (0.8-1.1) Sodium Level 139 mmol/L (136-145) Potassium Level 4.2 mmol/L (3.5-5.1) Chloride Level 104 mmol/L (98-107) Carbon Dioxide Level 28 mmol/L (21-32) Anion Gap 7 (6-14) Blood Urea Nitrogen 16 mg/dL (8-26) Creatinine 1.3 mg/dL (0.7-1.3) Estimated GFR (Cockcroft-Gault) 56.7 Glucose Level 115 mg/dL (70-99) Calcium Level 9.0 mg/dL (8.5-10.1) ECG EKG: NSR VTE Prophylaxis Ordered VTE Prophylaxis Devices: No VTE Pharmacological Prophylaxi: No Assessment/Plan Assessment/Plan 1. Abnormal stress echocardiogram with unstable angina Plan for a diagnostic coronary angiography and further evaluation and treatment as needed. CHICHI RIOS MD Aug 10, 2019 18:00
== END 2019-08-10 11:38 ==
LOC: CCL 07:02
PROVIDERS: ATTEND Internal Medicine Cardiovascular Disease
DX: I25.110 Atherosclerotic heart disease of native coronary artery with unstable angina pectoris (principal); E78.5 Hyperlipidemia, unspecified; E11.22 Type 2 diabetes mellitus with diabetic chronic kidney disease; I12.0 Hypertensive chronic kidney disease with stage 5 chronic kidney disease or end stage renal disease; N18.6 End stage renal disease; Z79.84 Long term (current) use of oral hypoglycemic drugs
CPT/HCPCS: 36415; 80048; 85027; 85610; 93458; 99152; 99153; C1769; C1892; J1644; J2250; J3010; J3490; Q9967

== ENCOUNTER → 2021-01-10 | Outpatient (CLI) | payer BC ==
[2019-08-10 11:04] VITALS: BP 115/72
[~2021-01-10] MED LIST changes: +EZET10TA20 PO
--- NOTE | 2021-01-10 10:25 | CARD ---
MR#: [id number] Date of Study: 01/10/2021 Ordering Physician: CHICHI RIOS, Referring Physician: CHICHI RIOS, Tech: Rebeca Arias [facility] APPROVED REPORT EXAM: Two-dimensional and M-mode echocardiogram with Doppler and color Doppler. Other Information Quality : AverageHR: 66bpm Rhythm : NSR INDICATION Hypertension/HCVD CAD RISK FACTORS Hypertension Hyperlipidemia 2D DIMENSIONS RVDd2.9 (2.9-3.5cm)Left Atrium(2D)4.8 (1.6-4.0cm) IVSd1.1 (0.7-1.1cm)Aortic Root(2D)3.4 (2.0-3.7cm) LVDd4.8 (3.9-5.9cm)LVOT Diameter2.5 (1.8-2.4cm) PWd1.1 (0.7-1.1cm)LVDs3.5 (2.5-4.0cm) FS (%) 27.0 %SV56.0 ml LVEF(%)52.6 (>50%) Aortic Valve AoV Peak See.155.1cm/sAoV VTI31.0cm AO Peak GR.9.6mmHgLVOT Peak See.89.8cm/s AO Mean GR.5mmHgAVA (VMAX)2.83cm2 Mitral Valve MV E Vgdpsisk34.8cm/sMV DECEL [id number] MV A Fnucjqai98.8cm/sE/A Ratio0.8 Pulmonary Valve PV Peak Helmftlu039.6cm/s Tricuspid Valve TR P. [id number]/sTR Peak Gr.30mmHg Pulmonary Vein S1 Adyagvrs76.6cm/sD2 Vjbsltru67.9cm/s PVa [id number] LEFT VENTRICLE The left ventricle is normal size. There is borderline concentric left ventricular hypertrophy. The l eft ventricular systolic function is normal. Estimated ejection fraction 60%. There is normal LV seg mental wall motion. Transmitral Doppler flow pattern is Grade I-abnormal relaxation pattern. RIGHT VENTRICLE The right ventricle is normal size. There is normal right ventricular wall thickness. The right ventr icular systolic function is normal. ATRIA The left atrium size is normal. The right atrium size is normal. The interatrial septum is intact wit h no evidence for an atrial septal defect or patent foramen ovale as noted on 2-D or Doppler imaging. AORTIC VALVE The aortic valve is normal in structure and function. Doppler and Color Flow revealed no significant aortic regurgitation. There is no significant aortic valvular stenosis. MITRAL VALVE The mitral valve is normal in structure and function. There is no evidence of mitral valve prolapse. There is no mitral valve stenosis. Doppler and Color-flow revealed trace mitral regurgitation. TRICUSPID VALVE The tricuspid valve is normal in structure and function. Doppler and Color Flow revealed trace tricus pid regurgitation. Estimated PAP 33 mmHg. There is no tricuspid valve stenosis. PULMONIC VALVE The pulmonary valve is normal in structure and function. Doppler and Color Flow revealed mild pulmoni c valvular regurgitation. GREAT VESSELS The aortic root is normal in size. The ascending aorta is normal in size. The IVC is normal in size a nd collapses >50% with inspiration. PERICARDIAL EFFUSION There is no evidence of significant pericardial effusion. Critical Notification Critical Value: No <Conclusion> The left ventricular systolic function is normal. Estimated ejection fraction 60%. There is normal LV segmental wall motion. Transmitral Doppler flow pattern is Grade I-abnormal relaxation pattern. Trace mitral regurgitation. Trace tricuspid regurgitation. Estimated PAP 33 mmHg. There is no evidence of significant pericardial effusion. Signed by : Dane Haque, Electronically Approved : 01/10/2021 10:25:02
== END ==
LOC: ECHO 07:39
PROVIDERS: ATTEND Internal Medicine Cardiovascular Disease
DX: I37.1 Nonrheumatic pulmonary valve insufficiency (principal); I25.10 Atherosclerotic heart disease of native coronary artery without angina pectoris; I51.7 Cardiomegaly
CPT/HCPCS: 93306